=== PATIENT | female | born 1960 | race Asian ===

== ENCOUNTER 2018-05-28 17:00 | Outpatient (RCR) | payer BC, SELFPAY ==
--- NOTE | 2018-04-13 11:00 | HP.PTEVAL_ITS ---
Patient's Visit Information ADALGISA OKEEFE is a 57 year old F referred to Physical Therapy by Jeanne Martinez with a diagnosis of R shoulder pain.. Date of Evaluation: 04/13/18 Physical Therapist: Mert Stoddard DPT, OC - Visit Plan Frequency: 1x/Week Duration: 4-6 Weeks Plan: weekly x 4-6 for progression of HEP to strength next session and end range of motion and pec stretch. May increase to 3x/week for US and mobs if progress not made. - Subjective Findings: R shoulder pain. Fell in November on R shoulder tripping on cord. Worsening pain since, had PT and acupuncture. Helped a little. Is ocmfortable at rest. Hurts to lie down. Can lie on L side but cannot on R side. Did x-rays were OK at [facility]. It wakes her up at night. Reaching up is painful. Taking clothes off is painful. Can do pants adn shoes now. 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 3x/week. No real hobbies. - Pain R shoulder Pain Intensity (Out of 10): 0 Pain Intensity Range: 0, 8 Comment: Reaching across body and reaching behind. - Objective R shoulder tender to touch at supra insertion adn into biceps tendon. Posture is forward head and protracted scap with tight pectorals B. AROM B is full but shoulder flexiona dn abd on R is painful at end range. Ext Rot and IR slightly painful end range. Strength is 4/5 in shoulder and elbow, R ext rotation 4- with slight pain. 2/3 biceps adn triceps B. Sensation UE WNL to gross light touch. + neer adn HK impiongement tests R. - ext rotation lag test, - sulcus. c/s aROM 45 B rotations and 48 ext with some L neck pain, says this is just today and is unusual for her. - Goals Goal 1:: Sleep without waking due to pain Goal Time Frame: 4-6 Weeks Goal 2:: Full aROM R shoulder without pain. Goal Time Frame: 4-6 Weeks Goal 3:: Patient feel 90% back to normal. Goal Time Frame: 4-6 Weeks Goal 4:: I approp HEP to minimize future Goal Time Frame: 4-6 Weeks - Rehabilitation Potential Physical Therapy Diagnosis: R shoulder pain likely impingement tendonitis. Rehabilitation Potential: Fair - Anticipated Interventions Patient/Client Instruction: Educate patient on: Condition, Plan of Care For the Purpose of:: To decrease pain, To increase tolerance to activity/condition/position Therapeutic Exercise to Include: Strength training, Flexibilty training, Passive ROM, Active ROM For the Purpose of:: To decrease pain, To increase ROM, To increase tolerance to activity/condition/position Manual Therapy Techniques to Include: Mobilization For the Purpose of:: To increase ROM TENS: Yes Cryotherapy (ice pack, ice massage): Yes For the Purpose of:: To decrease pain, To increase ROM Thank you for the opportunity to evaluate your patient. For Medicare and Medicare HMO plans, please review the plan of care and approve it. It will need to be FAXED BACK to us at [phone] for Medicare purposes. For Medicare only, by signing this I certify the plan of care. Please let me know if there are questions or concerns regarding this plan of care. Physician Signature: Date:
--- NOTE | 2018-05-28 17:45 | HP.PTDCSUM ---
HP - PT D/C Summary It has been my pleasure to treat ADALGISA OKEEFE under orders from Jeanne Martinez, for the diagnosis of R shoulder pain. for a total of 10 visit(s). Discharge Date: 05/28/18 Please see the following information for a summary of their discharge status. - Subjective Subjective: Feeling a lot better. Pain is still present but more manageable. Generally 3-4/10 throughout the day. - Pain R shoulder Pain Intensity (Out of 10): 2 - Overall Improvement % Improvement: 60 - Objective Objective/Function: Responds positively to therapy session. REducing pain and improving function at home. Better sleep quality. Symptoms provoked with end range flexion stretching to 6-7/10 but resolves to baseline immediately. Range of motion passively is within normal limits. - Goals Goal 1:: Sleep without waking due to pain Goal Progress: Progressing Goal 2:: Full aROM R shoulder without pain. Goal Progress: Progressing Goal 3:: Patient feel 90% back to normal. Goal Progress: Progressing Goal 4:: I approp HEP to minimize future Goal Progress: Goal Met - Plan Plan: Re-check with Mert Stoddard DPT. - D/C Information Discharge Comments: PROGRESSING SLOWLY. WILL CONTINUE VIA HEP AND CONTACT DOCTOR IF PROGRESS HALTS. If there are questions or concerns regarding this patient's physical therapy, please feel free to call me at [phone]. Thank you for the referral of this patient. Sincerely, Mert Stoddard, ROE, OCS, CSCS
== END 2018-05-28 19:00 | disposition home or self-care (01) ==
LOC: PT 17:00
PROVIDERS: Family Provider Internal Medicine; PCP Internal Medicine; Referring Provider Internal Medicine; Visit Provider Internal Medicine
DX: M25.511 Pain in right shoulder (principal); G89.29 Other chronic pain
CPT/HCPCS: 97035; 97110; 97140; 97162; 97530

== ENCOUNTER 2021-02-20 09:00 | Outpatient (RCR) | payer BC, SELFPAY ==
--- NOTE | 2021-02-07 17:11 | HP.OTEVAL_ITS ---
Patient's Visit Information ADALGISA OKEEFE is a 60 year old F, referred to Occupational Therapy by Dr. González Wang MD, with a diagnosis of bilateral hand pain left trigger finger. Date of Evaluation: 02/06/21 Occupational Therapist: Tami Rodriguez, OTR/L, CHT - Subjective This 60 year old female was seen for OT eval with dx of bilateral hand pain ( dip joint) and left trigger finger thumb. pt is right handed. nail fausto. pt states she 10-12 hours shifts. pt states pain in tips of fingers are about gone but she continues to have a trigger thumb. pt would like to know what she can do to stop the trigger. - Pain left thumb 3 Pain Intensity Range: 2, 5 - ROM CMC: left 10 right10 MP: left 50 left 60 IP: left 50 left 55 ROM Comments: pt demo with composite fist bilateral hands-. noted slight nodule deformities on bilateral DIPs. + left trigger thumb - Strength Trim Master Operator: right 45# left 35# Lateral Pinch: right 8# left 6# Tripod Pinch: right 4# left 2# - Sensation Sensation Comments: denies - Quick DASH-Disab of Arm,Shoulder& Hand Quick DASH Score: 45.0000 - Goals Goal:: pt will demo a increase in left compensation business partner strength by 15# or greater to increase pts ind. with ADLs and IADLs by dc Goal:: pt will demo full ROM of left thumb with no trigger by d.c Goal:: pt will report pain no greater than 1/10 with use of ADLs and IADls by dc Goal:: Pt will demo understanding of joint protection and ergonomics when performing BADLs and IADLs by d/c. Pt will demo understanding of adaptive Equipment use to decrease stress on joints to allow pt to perform BADSL and IADLS at JONI level. - Rehabilitation General Assessment: pt limited due to pain and left trigger thumb with ADLs and IADLS. pt would benefit from skilled OT services 1-2x week for 4 weeks to decrease pain, ed. pt on joint protection and eliminate left trigger thumb to return pt to PLOF. pt agree to POC. Rehabilitation Potential: Good - Anticipated Interventions A/AAROM/PROM, Strengthening, Triggerpoint Release, Modalities, Orthoses, Fine Motor Coord/Billy, Education re assistive Equipment, Education re Diagnosis - Visit Plan Frequency: 1-2x /Week Duration: 4 Weeks TEXT: Thank you for the opportunity to evaluate your patient. For Medicare and Medicare HMO plans, please review the plan of care and approve it. It will need to be FAXED BACK to us at [phone] for Medicare purposes. Please let me know if there are questions or concerns regarding this plan of care. Physician Signature: Date:
--- NOTE | 2021-02-21 08:53 | HP.OTREVAL ---
Dr. González Wang MD, It has been my pleasure to treat ADALGISA OKEEFE over the last 5 visits for bilateral hand pain left trigger finger. Please see the progress note below for an update on the occupational therapy plan of care! 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 states she is doing her best. Objective/Function: pt continues to struggle with pain and discomfort with increase use of bilateral hands- pts strength has not changed. pt continues to report tingling/numbness of left hand at night even with using her wrist brace- Due to limited progress therapy has advised pt to return to for further tx-. Therapist has ed, pt on limiting her right PIPJ hyper extension with her work tasks as well as left thumb- pt receptive and appeared to understanding stress this causes on joints. advised pt if she can use tape around PIP J to decrease hyper ext. pt receptive. Plan Plan: due to limited progress therapist advised pt to return to for further evaluation. Goals - Goals Patient Goals: Decrease Pain, Use Hand/Wrist/Arm Normally Again Goal:: pt will demo a increase in left recycling collections driver strength by 15# or greater to increase pts ind. with ADLs and IADLs by dc Goal:: pt will demo full ROM of left thumb with no trigger by d.c Goal:: pt will report pain no greater than 1/10 with use of ADLs and IADls by dc Goal:: Pt will demo understanding of joint protection and ergonomics when performing BADLs and IADLs by d/c. Pt will demo understanding of adaptive Equipment use to decrease stress on joints to allow pt to perform BADSL and IADLS at JONI level. Anticipated Interventions Anticipated Interventions: A/AAROM/PROM, Strengthening, Triggerpoint Release, Modalities, Orthoses, Fine Motor Coord/Billy, Education re assistive Equipment, Education re Diagnosis Please do not hesitate to contact me at [phone] by phone or if you have questions or concerns regarding this new plan of care! Sincerely, Tami Rodriguez, OTR/L, CHT
--- NOTE | 2021-05-22 10:18 | HP.OTDCSUM_ITS ---
It has been my pleasure to treat ADALGISA OKEEFE under orders from Dr. González Wang MD, for the diagnosis of bilateral hand pain left trigger finger for a total of 5 visit(s). Please see the following information for a summary of their discharge status. % Improvement: 60 Objective/Function: pt continues to struggle with pain and discomfort with increase use of bilateral hands- pts strength has not changed. pt continues to report tingling/numbness of left hand at night even with using her wrist brace- Due to limited progress therapy has advised pt to return to for further tx-. Therapist has ed, pt on limiting her right PIPJ hyper extension with her work tasks as well as left thumb- pt receptive and appeared to understanding stress this causes on joints. advised pt if she can use tape around PIP J to decrease hyper ext. pt receptive. Patient Goals: Decrease Pain, Use Hand/Wrist/Arm Normally Again Goal:: pt will demo a increase in left skills instructor strength by 15# or greater to increase pts ind. with ADLs and IADLs by dc Goal:: pt will demo full ROM of left thumb with no trigger by d.c Goal:: pt will report pain no greater than 1/10 with use of ADLs and IADls by dc Goal:: Pt will demo understanding of joint protection and ergonomics when performing BADLs and IADLs by d/c. Pt will demo understanding of adaptive Equipment use to decrease stress on joints to allow pt to perform BADSL and IADLS at JONI level. Plan: due to limited progress therapist advised pt to return to for further evaluation. If there are questions or concerns regarding this patient's occupational therapy, please fell free to call me at [phone]. Thank you for the referral of this patient. Sincerely, Tami Rodriguez, OTR/L, CHT
== END 2021-02-20 19:00 | disposition home or self-care (01) ==
LOC: OT 09:00
PROVIDERS: PCP Internal Medicine; Visit Provider Orthopaedic Surgery
DX: M79.642 Pain in left hand (principal); M65.312 Trigger thumb, left thumb; M79.641 Pain in right hand; M79.645 Pain in left finger(s)
CPT/HCPCS: 97035; 97140; 97166; 97530

== ENCOUNTER 2021-05-10 09:54 | Emergency (ER) | payer BC, SELFPAY ==
[2021-05-10 09:54] VITALS: BP 146/81; PULSE 72; RESP 16; TEMP 36.1; O2SAT 99; BMI 22.8
--- NOTE | 2021-05-10 10:27 | ED.VIS.GI ---
HPI HPI - GI History of Present Illness Chief Complaint: Abd Pain Narrative Narrative: 60-year-old female presenting with right lower abdominal pain. She states it started about 3 days ago and has been getting worse. Patient denies any urinary complaints. She does not have any diarrhea or constipation. No nausea or vomiting. Has not had fever, chills. Patient denies any vaginal complaints. She denies any injury that she knows of. PFSH PFSH Allergy/AdvReac Type Severity Reaction Status Date / Time No Known Allergies Allergy Verified 05/10/21 09:56 Social History Smoking Status: Never smoker ROS ROS ED Constitutional Constitutional ED: Denies chills, fever(s) or sweats Eyes Eyes: Denies blurry vision or change in vision ENT ENT ED: Denies ear pain or sore throat Cardiovascular Cardiovascular: Denies chest pain, palpitations or racing heartbeat Respiratory/Chest Respiratory/Chest: Denies cough, dyspnea or sputum Gastrointestinal Gastrointestinal: Reports abdominal pain; Denies constipation, diarrhea, nausea or vomiting Genitourinary Genitourinary ED: Denies dysuria, hematuria or urinary frequency Musculoskeletal Musculoskeletal: Denies arthralgias, myalgias or neck pain Integumentary Denies abscess, Abrasions or rash Neurologic Neurologic: Denies headache(s), paresthesias or weakness Psychiatric Psychiatric: Denies anxiety, depression, suicidal ideation or suicidal thoughts Endocrine Endocrinology: Denies polydipsia or polyuria EXAM Physical Exam Const Vital Signs: 05/10/21 09:54 05/10/21 12:54 Temperature 96.9 F L Temperature Source Temporal Pulse Rate 72 80 Respiratory Rate 16 16 Blood Pressure 146/81 H 140/78 H Blood Pressure Mean 102 98 Pulse Ox 99 99 Oxygen Delivery Method Room Air Room Air Positive well nourished General Appearance ED: NAD; Negative for pallor HEENT Reports moist mucous membranes normocephalic and atraumatic Eyes PERRL and EOMs intact bilaterally General Eye ED: Negative for pale conjunctiva or scleral icterus Resp normal respiratory effort and clear to auscultation bilaterally Cardio regular rate and regular rhythm GI non-distended Palpation: soft and tender RLQ; Negative for guarding, rigid or rebound tenderness present Extremity General Extremety ED: Negative for edema or tenderness General Extremity: Negative for edema Neuro Sensorium / Orientation: alert and oriented to person Psych mental status grossly normal and thought process normal Skin General Skin Exam: Negative for jaundice or pallor MDM MDM MDM Narrative Medical decision making narrative: Patient presented with right lower abdominal pain. It does appear to be more of a pelvic pain. No CVA tenderness. No McBurney point tenderness. Abdomen is nonperitoneal. Her vital signs are stable she is afebrile. I obtained blood work and she has no leukocytosis and in fact her white blood cell count is 5.7. Hemoglobin is stable at 13.1. Platelets are normal. Renal function and electrolytes are normal. Liver function testing is normal. Urinalysis is negative for blood or infection. hCG is negative. Pelvic ultrasound is ordered and other than some calcifications on the right lateral aspect of the uterus is unremarkable. Given Fauzia normal lab work I have a low clinical suspicion for appendicitis or other acute emergent pathology. I discussed the results of the blood work with the patient and offered them an option of a CAT scan today versus monitoring for worsening symptoms and returning if her pain gets worse and they elected to not have a CT scan today since her work-up is ultimately negative other than this.She states that her pain is a 1?2 after Toradol. Patient is given return precautions. Impression: 1. Abdominal pain unknown cause female Lab Data Attestation: I reviewed the patient's lab results. Labs: Laboratory Results - last 24 hr 05/10/21 05/10/21 05/10/21 10:30 10:30 11:00 WBC 5.7 RBC 4.19 L Hgb 13.1 Hct 38.4 MCV 91.6 MCH 31.3 MCHC 34.1 RDW Std Deviation 40.5 RDW Coeff of Wilber 12.1 Plt Count 205 MPV 10.5 Immature Gran % (Auto) 0.200 Neut % (Auto) 65.9 Lymph % (Auto) 24.7 [place] % (Auto) 7.4 Eos % (Auto) 0.7 Baso % (Auto) 1.1 H Absolute Neuts (auto) 3.8 Absolute Lymphs (auto) 1.41 Nucleated RBC % 0 Sodium 143 Potassium 4.1 Chloride 110 H Carbon Dioxide 29.0 Anion Gap 4 L BUN 14 Creatinine 0.79 Estim Creat Clear Calc 58.57 Est GFR (MDRD) Af Amer 96 Est GFR (MDRD) Non-Af 79 BUN/Creatinine Ratio 17.7 Glucose 143 H Calcium 8.8 Total Bilirubin 0.40 AST 20 ALT 30 Alkaline Phosphatase 66 Total Protein 7.5 Albumin 3.4 Globulin 4.1 Albumin/Globulin Ratio 0.8 L Urine Color Straw Urine Clarity Clear Urine pH 7.0 Ur Specific [place] 1.005 Urine Protein Negative Urine Glucose (UA) Normal Urine Ketones Negative Urine Occult Blood Negative Urine Nitrite Negative Urine Bilirubin Negative Urine Urobilinogen Normal Ur Leukocyte Esterase Negative Urine Test Negative Radiography Diagnostic Testing: Clinical Impression(s) from Imaging Studies Transvaginal US 05/10/21 11:26 IMPRESSION: Calcifications visualized within the right lateral aspect of the uterus otherwise unremarkable ultrasound, questionable degenerating fibroids. Electronically Signed: Remy Schulte MD at 13:03 EST Tel , Service support , Discharge Plan Triage Chief Complaint: Abd Pain ED Provider: Sridhar Hernandez Dx/Rx/DC Orders Instructions: ED Abdominal Pain Unkn Cause Fem Primary Care Provider: Jeanne Martinez Referrals: Jeanne Martinez MD [Primary Care Provider] - Disposition Disposition: Home, Self Care
[2021-05-10 10:39] LABS: Absolute Lymphocyte Count 1.41 X10^3/uL (0.83-4.51); Absolute Neutrophil Count 3.8 X10^3/uL (2.0-7.7); Basophil# 0.06 X10^3/uL; Basophil% 1.1 % (0-1); Eosinophil# 0.04 X10^3/uL; Eosinophils% 0.7 % (0-5); Hematocrit 38.4 % (37-47); Hemoglobin 13.1 g/dL (12.0-15.0); Lymphocyte # 1.41 X10^3/ul (0.83-4.51); Lymphocyte % 24.7 % (19-41); Mean Corp Hgb Conc 34.1 g/dL (32-36); Mean Corpuscular Hgb 31.3 pg (27.0-32.0); Mean Corpuscular Volume 91.6 fL (81-99); Mean Platelet Vol. 10.5 fl (6.2-12.0); Monocyte# 0.42 X10^3/uL; Monocyte% 7.4 % (0-10); NRBC Flagged by Analyzer 0 % (0-5); Neutrophil # 3.77 X10^3/uL (2.7-7.7); Neutrophil % 65.9 % (47-70); Platelet Count 205 K/mm3 (150-450); RBC Distribution Width CV 12.1 % (11.6-14.6); RBC Distribution Width SD 40.5 fl (35.1-43.9); Red Blood Count 4.19 M/mm3 (4.2-5.4); White Blood Count 5.7 K/mm3 (4.4-11.0)
[2021-05-10 10:54] LABS: ALB/GLOB Ratio 0.8 RATIO (0.9-2.4); AST(SGOT) 20 U/L (15-37); Alanine Aminotransfer ALT/SGPT 30 U/L (13-56); Albumin, Serum 3.4 g/dL (3.2-5.0); Alkaline Phosphatase 66 U/L (45-117); Anion Gap 4 (5-15); BUN 14 mg/dL (7-18); BUN/Creat Ratio 17.7 RATIO (10-20); Calcium,Total 8.8 mg/dL (8.5-10.1); Chloride 110 mmol/L (98-107); Creatinine, Serum 0.79 mg/dL (0.55-1.02); EST Glomerular Filtration Rate 79 mL/min (>60); Est Glom Filt Rate - Afr Amer 96 mL/min (>60); Estimated Creatinine Clearance 58.57 ml/min; Globulin 4.1 g/dL (2.2-4.2); Glucose 143 mg/dL (74-106); Potassium 4.1 mmol/L (3.5-5.1); Protein, Total 7.5 g/dL (6.4-8.2); Sodium Level 143 mmol/L (136-145)
[2021-05-10 11:11] LABS: Color, Urine Straw (Yellow); Glucose, Dipstick Normal (Normal); Ketone-Dipstick Negative (Negative); Leukocyte Esterase-Dipstick Negative /ul (Negative); Nitrite-Dipstick Negative (Negative); Occult Blood-Urine Negative /ul (Negative); Protein-Dipstick Negative (Negative); Specific Gravity, Urine 1.005 (1.002-1.030); Urine Bilirubin Dipstick Negative (Negative); Urine Clarity Clear (Clear); Urine Urobilinogen Normal (Normal)
[2021-05-10 11:16] LABS: Internal QC Validated? YES +Cl - CLEAR BKGD; Pregnancy, Urine Negative Negative
--- NOTE | 2021-05-10 11:26 | US_ITS ---
INDICATION: pelvic pain EXAMINATION: Ultrasound US Transvaginal Non-OB TECHNIQUE: Transvaginal (for optimal evaluation of the adnexa) pelvic ultrasound was performed. Grayscale, spectral waveform, and color flow Doppler evaluation of the adnexa. COMPARISON: None. FINDINGS: UTERUS: Anteverted. The uterus measures 6.2 x 3.9 x 5.0 cm. There is no uterine mass. Calcifications visualized along the left lateral aspect of the uterus measuring 0.9 x 0.8 x 0.3 cm and 0.5 x 0.6 x 0.3 cm, this could represent the calcifications within fibroids. Fibroid degeneration. The endometrial stripe measures 4 in AP diameter which is within normal limits. RIGHT OVARY: The right ovary is unremarkable measuring 2.3 x 1.4 x 1.0 cm.. Non-enlarged, normal echogenicity. There is normal arterial inflow and venous outflow present in the right ovary. LEFT OVARY: The left ovary is unremarkable measuring 2.0 x 1.7 x 1.0 cm. Non-enlarged, normal echogenicity. There is normal arterial inflow and venous outflow present in the left ovary. FREE FLUID: None. US/Transvaginal Non- IMPRESSION: Calcifications visualized within the right lateral aspect of the uterus otherwise unremarkable ultrasound, questionable degenerating fibroids. Electronically Signed: Remy Schulte MD at 13:03 EST Tel , Service support ,
[2021-05-10] MEDS: Ketorolac 15 MG/ML Vial IV (12:42)
[2021-05-10 12:54] VITALS: BP 140/78; PULSE 80; RESP 16; O2SAT 99
[2021-05-10 13:50] VITALS: PULSE 74; RESP 16; O2SAT 98
== END 2021-05-10 13:50 | disposition home or self-care (01) ==
PROVIDERS: Emergency Provider Student in an Organized Health Care Education/Training Program; PCP Internal Medicine
DX: R10.31 Right lower quadrant pain (principal); R10.2 Pelvic and perineal pain
CPT/HCPCS: 76830; 80053; 81002; 81025; 85025; 96374; 99283; A4216

== ENCOUNTER 2025-03-01 10:30 | Outpatient (RCR) | payer BC, SELFPAY ==
--- NOTE | 2025-02-14 16:00 | HP.PTEVAL_ITS ---
Patient's Visit Information Visit Information Visit Information: ADALGISA OKEEFE is a 64 year old F referred to Physical Therapy by Dr. Jeanne Martinez MD with a diagnosis of cervical radiculopathy. Date of Evaluation: 02/14/25 Physical Therapist: Mert Stoddard, DPT, OCS, CSCS Visit Plan Frequency: 2x /Week Duration: 4-6 Weeks Plan: 2x/week for 2-4 weeks... IE HEP supine cervical retraction lift 2 sc 15x 2x/day, posture and body mechanics review with gym machines and sleeping position with roll cervical. treat with MH and quick DTR to L rhomboid cervical isometric strength Do upper body gym ex ensuring appropriate neck posture with lifts(pt does these at another gym currently) Ensure good technique. pain is 90% btter today and let EG know if pain returns. Subjective Subjective: Neck pain constant at first in neeck and L shoulder blade mostly and R side a little bit. Steroid shot last weeek for LB helped neck alot. neck pain started 2 weeks ago. Insidious. no prior problems. has LB problems and pain in hips but does not keep her form walking 45 min and UE and LE machines 3x/week. Exercise does not bother stephen. Sleep is OK, pillow is uncomfy in neck but not scapula. Gets 5 hours- 6 hours. 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 Not since August. LB had PT. Dr. Larios ortho treating hip adn LB. MRI: L45 disc problem. 80% better in LB sincee injection. Neck is 90% bettere since injection. Activity: Pain neck: Pain Intensity (Out of 10): 0 Pain Intensity Range: 0 and 1 Objective Objective: L scapula. tenderneess in rhomboids minimally, FW head posture, corrected with VC. Good movement of scap adn UE AROM WFL and without pain today. cervical aROM without pain ext to 60, rotations to 64 B, SB full and without pain. reflexes 2/3 bi and tri B. sensation UE WNL to gross light touch B. strength scap 4-, shoulders 4-, eelbows 4/5, wrsits and thumb 4/5. No pain or myotomal problems. - c/s compression test. Most notable today is forward head posture, min tenderness in l rhomboids and weakness in neck particularly deep cervial flexors hard to hold retraction against gravity. Balance/Special Test Scores Oswestry Neck Score: 7 Goals Goal 1:: pain in neck/scap 100% back to normal Goal Time Frame: 2-4 Weeks Goal 2:: Activities and sleep without pain in neck/scap x one week. Goal Time Frame: 2-4 Weeks Goal 3:: I appropriate posture/body mechanics with machine workout and nck strength to minimize future problems. Goal Time Frame: 2-4 Weeks Rehabilitation Potential Physical Therapy Diagnosis: weakness, and tenderness in neck much improved since LB injection but slightly limiting. Rehabilitation Potential: Good Anticipated Interventions Patient/Client Instruction: Educate patient on: Condition For the Purpose of:: To decrease pain, To improve nutrient delivery to tissue and To improve muscle performance and motor function Therapeutic Exercise to Include: Strength training and Postural training For the Purpose of:: To decrease pain, To improve nutrient delivery to tissue and To increase tolerance to activity/condition/position Manual Therapy Techniques to Include: Mobilization, Passive ROM and Soft tissue mobilization For the Purpose of:: To improve nutrient delivery to tissue, To improve muscle performance and motor function and To increase tolerance to activity/condition/position Text: Thank you for the opportunity to evaluate your patient. For Medicare and Medicare HMO plans, please review the plan of care and approve it. It will need to be FAXED BACK to us at [phone] for Medicare purposes. For Medicare only, by signing this I certify the plan of care. Please let me know if there are questions or concerns regarding this plan of care. Physician Signature: Date:
--- NOTE | 2025-03-01 11:16 | HP.PTDCSUM_ITS ---
Discharge Summary D/C summary: It has been my pleasure to treat ADALGISA OKEEFE referred by Dr. Jeanne Martinez MD, with the diagnosis of cervical radiculopathy for a total of 5 visit(s). Discharge Date: 03/01/25 Please see the following information for a summary of their discharge status. Subjective Subjective: No pain and is back to normal. Sleeping is OK. Will go to [employer]. No f/u with [facility]. Will see Basali on Friday for LB. Activities normal for neck but avoids laundry lifting with LB. Pain neck: Pain Intensity (Out of 10): 0 Overall Improvement % Improvement: 100 Objective Objective/Function: neck AROM painfree adn without asymmetries. strength UE 4- /5 without pain or myotomal problems. walking well although stiffness is obvious in LB. Goals Goal 1:: pain in neck/scap 100% back to normal Goal Progress: Goal Met Goal 2:: Activities and sleep without pain in neck/scap x one week. Goal Progress: Goal Met Goal 3:: I appropriate posture/body mechanics with machine workout and nck strength to minimize future problems. Goal Progress: Goal Met Plan Plan: d/c to gym based ex D/C Information d/c sentence: If there are questions or concerns regarding this patient's physical therapy, saad mathias feel free to call me at [phone]. Thank you for the referral of this patient. Sincerely, Mert Stoddard, DPT, OCS, CSCS Balance/Gait/Functional tests Balance/Special Test Scores Oswestry Neck Score: 2 Improvement % Improvement: 100
== END 2025-03-01 19:00 | disposition home or self-care (01) ==
LOC: PT 10:30
PROVIDERS: PCP Internal Medicine; Referring Provider Internal Medicine; Visit Provider Internal Medicine
DX: M50.30 Other cervical disc degeneration, unspecified cervical region (principal)
CPT/HCPCS: 97110; 97140; 97161; 97530

== ENCOUNTER 2025-04-19 11:00 | Outpatient (RCR) | payer BC, SELFPAY ==
--- NOTE | 2025-03-15 14:50 | HP.PTEVAL_ITS ---
Patient's Visit Information Visit Information Visit Information: ADALGISA OKEEFE is a 64 year old F referred to Physical Therapy by Dr. Stuart Peck MD with a diagnosis of Back pain, hip pain. Date of Evaluation: 03/15/25 Physical Therapist: Mert Stoddard, DPT, OCS, CSCS Visit Plan Frequency: 2x /Week Duration: 4-6 Weeks Plan: 2x/week for 3-6 weeks IE HEP: DKC 10x, cat camel 10x, fis 10x, 2x/day HO given. NRS also Treat with: flexion ROM and mobs to lumbar, progression of confidence with LB ROM, core strength mat to home then gym to [employer]. STM to central LB with MH for pain Subjective Subjective: LBP and stays in L hip and LB. Present since October, caused insidiously. Has had 2 hip injections which helped 50% last Friday. Pain is still 5/10 intermitteently but mostly constant. LB comes and goees. LB beetter as day goes on. Hurts at times with walking. Sleep is not a problem. Activitiees: avoids bnding as it hurts. employed: no quit due to back pain, sitting was not tolrable for manicres. No LB exercises Pain hip L: Pain Intensity (Out of 10): 4 Pain Intensity Range: 3 and 5 LBP: Pain Intensity (Out of 10): 0 Pain Intensity Range: 0 and 5 Comment: am worse, Objective Objective: Walks into PT slowly but I. Trasnfer bed adn chair carefully but I. Holds back in lumbar region very flat and straight in neutral and dos not like/is fearful to move it. Lumbar ext max limited, flexion max limiteed, some pain end ranges centrally but fearful admiitedly. SB are OK. + L SLR and slump slightly with neerve pulling. + L ROBERT and FADDIR slightly. strngth hip abd 3+ B, ext 4- B, flexion shows core instability adn 3B. knee and ankle 4/5 without pain. reflexes 2/3 patella and achilles Sensation B LE WNL to gross light touch. Balance/Special Test Scores Lower Extremity Functional Score: 38 Goals Goal 1:: I appropriate back ROM and core strength ex at gym [employer] to limit future problems Goal Time Frame: 4-6 Weeks Goal 2:: Back pain 1/10 at worst and 80% better Goal Time Frame: 4-6 Weeks Goal 3:: touch floor in standing without increased pain to show diminished fear of movement Goal Time Frame: 4-6 Weeks Goal 4:: LEFS score 50 Goal Time Frame: 4-6 Weeks Rehabilitation Potential Physical Therapy Diagnosis: back ROm limitations and pain and fear limiting funciton Rehabilitation Potential: Fair Anticipated Interventions Patient/Client Instruction: Educate patient on: Condition and Plan of Care For the Purpose of:: To decrease pain, To increase ROM, To improve nutrient delivery to tissue, To improve muscle performance and motor function and To increase tolerance to activity/condition/position Therapeutic Exercise to Include: Strength training, Postural training, Flexibilty training, Passive ROM, Active ROM and Dynamic Lumbar Stabilization For the Purpose of:: To decrease pain, To increase ROM, To improve nutrient delivery to tissue, To improve muscle performance and motor function and To increase tolerance to activity/condition/position Manual Therapy Techniques to Include: Mobilization, Passive ROM and Soft tissue mobilization For the Purpose of:: To decrease pain, To increase ROM, To improve nutrient delivery to tissue, To improve muscle performance and motor function and To improve ability of physical actions for home/community/work/leisure Thermo therapy (hot pack): Yes For the Purpose of:: To increase ROM and To improve nutrient delivery to tissue Text: Thank you for the opportunity to evaluate your patient. For Medicare and Medicare HMO plans, please review the plan of care and approve it. It will need to be FAXED BACK to us at [phone] for Medicare purposes. For Medicare only, by signing this I certify the plan of care. Please let me know if there are questions or concerns regarding this plan of care. Physician Signature: Date:
--- NOTE | 2025-04-19 11:17 | HP.PTDCSUM ---
Discharge Summary D/C summary: It has been my pleasure to treat ADALGISA OKEEFE referred by Dr. Stuart Peck MD, with the diagnosis of Back pain, hip pain for a total of 8 visit(s). Discharge Date: 04/19/25 Please see the following information for a summary of their discharge status. Subjective Subjective: Doing HEP regularly. Went to PF 2x doing lat pulldown, chest, shoulder, row, flyleg xt, lg curl,back ext. Tehy don't have abd machine. Back pain wors in am 4/10 and some days no problem. Doing fis regularly. To in may. Pain hip L: Pain Intensity (Out of 10): 3 LBP: Pain Intensity (Out of 10): 3 Overall Improvement % Improvement: 60 Objective Objective/Function: Good ROM ext adn flexion and SB, Flexion is still tight but improving and not painful. Walking well and confident she can continue at home adn at gym herself. Goals Goal 1:: I appropriate back ROM and core strength ex at gym [employer] to limit future problems Goal Progress: Goal Met Goal 2:: Back pain 1/10 at worst and 80% better Goal Progress: 60 Goal 3:: touch floor in standing without increased pain to show diminished fear of movement Goal Progress: Goal Met Goal 4:: LEFS score 50 Goal Progress: oswstry. Plan Plan: d/c to HEP adn gym D/C Information Discharge Comments: To [facility] in May, will continue ex until then. d/c sentence: If there are questions or concerns regarding this patient's physical therapy, please feel free to call me at [phone]. Thank you for the referral of this patient. Sincerely, Mert Stoddard, DPT, OCS, CSCS Balance/Gait/Functional tests Balance/Special Test Scores Oswestry Low Back Score: 6 Lower Extremity Functional Score: 38 Improvement % Improvement: 60
== END 2025-04-19 19:00 | disposition home or self-care (01) ==
LOC: PT 11:00
PROVIDERS: PCP Internal Medicine; Visit Provider Anesthesiology Pain Medicine
DX: M54.9 Dorsalgia, unspecified (principal); M25.559 Pain in unspecified hip
CPT/HCPCS: 97110; 97140; 97161; 97164; 97530